=== PATIENT | male | born 1975 | race African-American/Black ===

== ENCOUNTER 2016-11-04 14:35 | Emergency (ER) | payer BC ==
[~2016-11-04] VITALS: Ht 180.3 cm; Wt 126.4 kg
[2016-11-04 14:38] VITALS: BP 163/84; TEMP 102.3
[2016-11-04 16:31] LABS: INFLUENZA B NEGATIVE
[2016-11-04] MEDS ORDERED: AMOXICILLIN 8751 TAB PO (16:49)
[2016-11-04 17:05] VITALS: PULSE 99
== END 2016-11-04 17:05 | disposition home or self-care (01) ==
LOC: COL.ER 14:35
PROVIDERS: Physician Assistant
DX: H66.93 Otitis media, unspecified, bilateral (principal); R07.1 Chest pain on breathing; R05 Cough